=== PATIENT | female | born 1980 | race Native Hawaiian/Other Pacific Islander ===

== ENCOUNTER 2019-01-07 12:36 | Emergency (ER) | payer BC ==
[~2019-01-07] VITALS: Ht 157.5 cm; Wt 63.5 kg
[2019-01-07 13:05] LABS: PLATELET COUNT 250 K/uL (152-353)
[2019-01-07 13:13] LABS: POTASSIUM 3.6 mmol/L (3.6-5.2); SODIUM 139 mmol/L (136-145)
[2019-01-07 13:50] VITALS: BP 102/67; TEMP 98.7
== END 2019-01-07 13:50 | disposition home or self-care (01) ==
LOC: ED 12:36
PROVIDERS: Family Medicine
DX: M94.0 Chondrocostal junction syndrome [Tietze] (principal); N39.0 Urinary tract infection, site not specified; R06.09 Other forms of dyspnea; R00.1 Bradycardia, unspecified
CPT/HCPCS: 36415; 80053; 80307; 81000; 81025; 82550; 84484; 85027; 86318; 87086; 87088; 93005; 94664; 96374; 96375; 99284; J1200; J1885

== ENCOUNTER 2023-03-12 07:20 | Observation (INO) | payer BC, OTHER ==
[2023-03-12] VITALS (8 sets, daily range): BP systolic 92–137; BP diastolic 52–81; TEMP 97.8–98.4; Ht 167.6 cm; Wt 74.5 kg
[~2023-03-12] VITALS: Ht 167.6 cm; Wt 74.5 kg
[2023-03-12 08:15] LABS: PLATELET COUNT 247 K/uL (152-353); POTASSIUM 3.7 mmol/L (3.6-5.2)
[2023-03-12 08:23] LABS: PARTIAL THROMBOPLASTIN TIME 30.5 SECONDS (23.9-36.7)
[2023-03-12] MEDS ORDERED: HAIR SKIN AND N1 TAB PO (10:45)
[2023-03-13 04:00] VITALS: BP 101/61; TEMP 98.1
[2023-03-13 05:04] LABS: PLATELET COUNT 221 K/uL (152-353)
[2023-03-13 05:19] LABS: POTASSIUM 3.9 mmol/L (3.6-5.2)
[2023-03-13 07:55] VITALS: BP 109/72; TEMP 97.8
[2023-03-13 11:59] VITALS: BP 120/83; TEMP 98
== END 2023-03-13 14:11 | disposition home or self-care (01) ==
LOC: ED 07:20 → MED/SURG 08:39
PROVIDERS: Family Medicine; ADMIT Nurse Practitioner Family; ATTEND Internal Medicine Endocrinology, Diabetes & Metabolism
DX: G43.909 Migraine, unspecified, not intractable, without status migrainosus (principal); R20.0 Anesthesia of skin
CPT/HCPCS: 36415; 80048; 80053; 80061; 84484; 84702; 85027; 85610; 85730; 93005; 99221; 99284; G0378; J1650